=== PATIENT | male | born 1985 | race Caucasian/White ===

== ENCOUNTER 2018-06-19 10:27 | Emergency (ER) | payer MEDICAID ==
[~2018-06-19] VITALS: Ht 175.3 cm; Wt 73.0 kg
[2018-06-19 10:33] VITALS: Ht 175.3 cm; Wt 73.0 kg
[2018-06-19 12:02] VITALS: BP 124/61
== END 2018-06-19 12:00 | disposition home or self-care (01) ==
LOC: ED 10:27
DX: S90.112A Contusion of left great toe without damage to nail, initial encounter (principal); W22.8XXA Striking against or struck by other objects, initial encounter; Y93.89 Activity, other specified; Y92.89 Other specified places as the place of occurrence of the external cause; Y99.8 Other external cause status
CPT/HCPCS: Q0092